=== PATIENT | female | born 2000 | race Hispanic/Latino ===

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

== ENCOUNTER → 2022-03-02 | Outpatient (CLI) | payer OTHER ==
[~2022-03-02] VITALS: Ht 12.7 cm; Wt 132.9 kg
== END | disposition home or self-care (01) ==
LOC: DTH 02-20 12:59
PROVIDERS: ATTEND Surgery
DX: Z71.3 Dietary counseling and surveillance (principal); K76.0 Fatty (change of) liver, not elsewhere classified; K21.9 Gastro-esophageal reflux disease without esophagitis; G47.33 Obstructive sleep apnea (adult) (pediatric); E66.01 Morbid (severe) obesity due to excess calories; Z68.43 Body mass index [BMI] 50.0-59.9, adult
CPT/HCPCS: 97802

== ENCOUNTER → 2022-03-17 | Outpatient (CLI) | payer OTHER | END | disposition home or self-care (01) | LOC: DTH 10:20 | PROVIDERS: ATTEND Surgery | DX: Z71.3 Dietary counseling and surveillance (principal); K76.0 Fatty (change of) liver, not elsewhere classified; K21.9 Gastro-esophageal reflux disease without esophagitis; G47.33 Obstructive sleep apnea (adult) (pediatric); E66.01 Morbid (severe) obesity due to excess calories; Z68.43 Body mass index [BMI] 50.0-59.9, adult | CPT/HCPCS: 97803 ==

== ENCOUNTER → 2022-04-17 | Outpatient (CLI) | payer OTHER | END | disposition home or self-care (01) | LOC: DTH 09:59 | PROVIDERS: ATTEND Surgery | DX: Z71.3 Dietary counseling and surveillance (principal); K21.9 Gastro-esophageal reflux disease without esophagitis; K76.0 Fatty (change of) liver, not elsewhere classified; G47.33 Obstructive sleep apnea (adult) (pediatric); E66.01 Morbid (severe) obesity due to excess calories; Z68.43 Body mass index [BMI] 50.0-59.9, adult | CPT/HCPCS: 97803 ==

== ENCOUNTER → 2022-05-11 | Outpatient (CLI) | payer OTHER | END | disposition home or self-care (01) | LOC: DTH 08:47 | PROVIDERS: ATTEND Surgery | DX: Z71.3 Dietary counseling and surveillance (principal); E66.01 Morbid (severe) obesity due to excess calories; K76.0 Fatty (change of) liver, not elsewhere classified; K21.9 Gastro-esophageal reflux disease without esophagitis; G47.33 Obstructive sleep apnea (adult) (pediatric); Z68.43 Body mass index [BMI] 50.0-59.9, adult | CPT/HCPCS: 97803 ==

== ENCOUNTER → 2022-06-25 | Outpatient (CLI) | payer OTHER | END | disposition home or self-care (01) | LOC: DTH 11:06 | PROVIDERS: ATTEND Surgery | DX: Z71.3 Dietary counseling and surveillance (principal); E66.01 Morbid (severe) obesity due to excess calories; K76.0 Fatty (change of) liver, not elsewhere classified; K21.9 Gastro-esophageal reflux disease without esophagitis; G47.33 Obstructive sleep apnea (adult) (pediatric); Z68.43 Body mass index [BMI] 50.0-59.9, adult | CPT/HCPCS: 97803 ==

== ENCOUNTER 2022-07-14 00:09 | Emergency (ER) | payer MEDICAID, OTHER ==
[~2022-07-14] VITALS: Ht 154.9 cm; Wt 136.5 kg
[2022-07-14 00:56] LABS: BASOPHILS % (AUTO) 0.2 % (0.0-5.0); EOSINOPHILS % (AUTO) 0.6 % (0.0-8.0); HEMATOCRIT 35.5 % (36-48); LYMPHOCYTES % (AUTO) 20.6 % (21.0-51.0); MEAN CORPUSCULAR HEMOGLOBIN 24.5 pg (27.0-33.0); MEAN CORPUSCULAR VOLUME 79.1 fL (80-100); MONOCYTES % (AUTO) 8.2 % (3.0-13.0); NEUTROPHILS % (AUTO) 70.1 % (40.0-77.0); PLATELET COUNT (AUTO) 267 K/uL (130-400); RED BLOOD CELL COUNT(AUTO) 4.49 MIL/uL (4.00-5.50); RED CELL DISTRIBUTION WIDTH 14.9 % (11.0-15.5); WHITE BLOOD COUNT (AUTO) 14.3 K/uL (4.8-10.8)
[2022-07-14 01:00] LABS: APPEARANCE,URINE SL CLOUDY (CLEAR); BILIRUBIN,URINE NEGATIVE (NEGATIVE); COLOR,URINE YELLOW (YELLOW); GLUCOSE, URINE (UA) NEGATIVE (NEGATIVE); KETONES,URINE NEGATIVE (NEGATIVE); LEUKOCYTE ESTERASE ,URINE NEGATIVE Leu/uL (NEGATIVE); NITRATE,URINE NEGATIVE (NEGATIVE); OCCULT BLOOD,URINE SMALL (NEGATIVE); PROTEIN,URINE 30 mg/dL (NEGATIVE); UROBILINOGEN,URINE 0.2 mg/dL (0.2-1.0)
[2022-07-14] MEDS ORDERED: KETOROLAC 30MG VIAL (30MG/ML) IVP ONE (01:00)
[2022-07-14] MEDS ORDERED: ONDANSETRON 4MG INJ IVP ONE (01:00)
[2022-07-14] MEDS ORDERED: DiphenhydrAMINE HCL 50 MG/ML VIAL IV ONE (01:00)
[2022-07-14] MEDS ORDERED: METOCLOPRAMIDE 10 MG/2 ML VIAL IVP ONE (01:00)
[2022-07-14] MEDS ORDERED: 0.9%NACL 1000ML 1,000 ML IV ONE (01:00)
[2022-07-14 01:03] LABS: BACTERIA,URINE Rare /HPF (None Seen); MUCUS,URINE Rare LPF (None Seen); RBC,URINE 0-1 /HPF (0-1); SQUAMOUS EPITHELIAL CELL,UR Few /HPF (0-2); WBC,URINE 0-1 /HPF (0-1)
[2022-07-14 01:05] LABS: CREATININE 0.7 mg/dL (0.5-1.5); POTASSIUM 3.5 mmol/L (3.5-5.1)
[2022-07-14 01:09] LABS: ALBUMIN 3.6 g/dL (3.5-5.0); TOTAL PROTEIN, SERUM 7.9 g/dL (6.0-8.3)
[2022-07-14] MEDS ORDERED: IBUP-2077 PO (02:25)
[2022-07-14] MEDS ORDERED: BUTA-271 PO (02:25)
[2022-07-14] MEDS ORDERED: ONDA4TAB10 PO (02:25)
[2022-07-14 02:45] VITALS: BP 118/72
[2022-09-10] MEDS ORDERED: IBUP-2076 PO (09:25)
== END 2022-07-14 02:46 | disposition home or self-care (01) ==
LOC: EDH 00:09
DX: G43.909 Migraine, unspecified, not intractable, without status migrainosus (principal); Z20.822 Contact with and (suspected) exposure to COVID-19; R11.10 Vomiting, unspecified; J45.909 Unspecified asthma, uncomplicated; F41.9 Anxiety disorder, unspecified; Z90.89 Acquired absence of other organs; Z90.49 Acquired absence of other specified parts of digestive tract
CPT/HCPCS: 99284; 96374; 96375 ×2; 87635; 96361; 80053; 85025; 87880; 87804 ×2; 81001; 81025; 36415; C9803; J1200; J7030; J2405; J1885; J2765

== ENCOUNTER → 2022-07-14 | Outpatient (CLI) | payer OTHER ==
[~2022-07-14] MED LIST: BUTA-271 PO; IBUP-2077 PO; ONDA4TAB10 PO
== END | disposition home or self-care (01) ==
LOC: DTH 10:14
PROVIDERS: ATTEND Surgery
DX: Z71.3 Dietary counseling and surveillance (principal); E66.01 Morbid (severe) obesity due to excess calories; G47.33 Obstructive sleep apnea (adult) (pediatric); K21.9 Gastro-esophageal reflux disease without esophagitis; K76.0 Fatty (change of) liver, not elsewhere classified; Z68.43 Body mass index [BMI] 50.0-59.9, adult
CPT/HCPCS: 97803

== ENCOUNTER → 2022-09-02 | Outpatient (CLI) | payer OTHER | END | disposition home or self-care (01) | LOC: DTH 10:32 | PROVIDERS: ATTEND Surgery | DX: E66.01 Morbid (severe) obesity due to excess calories (principal); K76.0 Fatty (change of) liver, not elsewhere classified; K21.9 Gastro-esophageal reflux disease without esophagitis; G47.33 Obstructive sleep apnea (adult) (pediatric) | CPT/HCPCS: 97803 ==

== ENCOUNTER 2023-02-17 06:21 | Emergency (ER) | payer MEDICAID ==
[~2023-02-17] VITALS: Ht 165.1 cm; Wt 109.8 kg
[2023-02-17] MEDS ORDERED: KETOROLAC 60 MG VIAL (30MG/ML) IM ONE (08:00)
[2023-02-17] MEDS ORDERED: IBUP-2070 PO (08:55)
[2023-02-17 09:01] VITALS: BP 108/73; PULSE 66; RESP 16; O2SAT 100
== END 2023-02-17 09:09 | disposition home or self-care (01) ==
LOC: EDH 06:21
DX: S63.91XA Sprain of unspecified part of right wrist and hand, initial encounter (principal); S40.021A Contusion of right upper arm, initial encounter; G43.909 Migraine, unspecified, not intractable, without status migrainosus; Z90.49 Acquired absence of other specified parts of digestive tract; W18.39XA Other fall on same level, initial encounter; Y93.89 Activity, other specified; Y92.89 Other specified places as the place of occurrence of the external cause; Y99.8 Other external cause status
CPT/HCPCS: 99284; 73100; 73080; 73130; 73030; 96372; J1885

== ENCOUNTER 2023-06-20 09:41 | Emergency (ER) | payer OTHER, BC ==
[~2023-06-20] VITALS: Ht 165.1 cm; Wt 102.5 kg
[~2023-06-20 09:41] MED LIST changes: -BUTA-271 PO; +IBUP-2070 PO; -IBUP-2077 PO; -ONDA4TAB10 PO
[2023-06-20 09:42] VITALS: RESP 16
[2023-06-20 10:14] LABS: HEMATOCRIT 38.6 % (36-48); MEAN CORPUSCULAR HEMOGLOBIN 26.2 pg (27.0-33.0); MEAN CORPUSCULAR HGB CONC 30.6 g/dL (32.0-36.0); MEAN CORPUSCULAR VOLUME 85.8 fL (79-99); PLATELET COUNT (AUTO) 256 K/uL (130-400); RED CELL DISTRIBUTION WIDTH 13.5 % (11.0-15.5); WHITE BLOOD COUNT (AUTO) 9.8 K/uL (4.8-10.8)
[2023-06-20 10:20] LABS: CREATININE 0.8 mg/dL (0.5-1.5); POTASSIUM 3.5 mmol/L (3.5-5.1)
[2023-06-20 10:41] LABS: HCG,QUALITATIVE URINE NEGATIVE (NEGATIVE)
[2023-06-20 10:49] LABS: APPEARANCE,URINE CLOUDY (CLEAR); BILIRUBIN,URINE NEGATIVE (NEGATIVE); COLOR,URINE YELLOW (YELLOW); GLUCOSE, URINE (UA) NEGATIVE (NEGATIVE); KETONES,URINE NEGATIVE (NEGATIVE); LEUKOCYTE ESTERASE ,URINE 500 Leu/uL (NEGATIVE); NITRATE,URINE NEGATIVE (NEGATIVE); OCCULT BLOOD,URINE NEGATIVE (NEGATIVE); PROTEIN,URINE 20 mg/dL (NEGATIVE); UROBILINOGEN,URINE 0.2 mg/dL (0.2-1.0)
[2023-06-20 10:55] LABS: ADD UA MICROSCOPIC YES
[2023-06-20 10:59] LABS: BACTERIA,URINE FEW /HPF (None Seen); MUCUS,URINE RARE LPF (None Seen); SQUAMOUS EPITHELIAL CELL,UR MANY /HPF (0-2); WBC,URINE 26-50 /HPF (0-1)
[2023-06-20] MEDS ORDERED: LACTATED RINGERS 1000ML 1,000 ML IV ONE (11:00)
[2023-06-20] MEDS ORDERED: FAMOTIDINE 20MG VIAL IV ONE (11:00)
[2023-06-20] MEDS ORDERED: ONDANSETRON 4MG INJ IVP ONE (11:00)
[2023-06-20 11:22] LABS: ALBUMIN 3.5 g/dL (3.5-5.0); BILIRUBIN,DIRECT 0.1 mg/dL (0.0-0.3); BILIRUBIN,TOTAL 0.7 mg/dL (0.2-1.0); TOTAL PROTEIN, SERUM 7.8 g/dL (6.0-8.3)
[2023-06-20 11:32] LABS: RAPID GROUP A STREP negative (NEGATIVE)
[2023-06-20 11:39] LABS: COVID19 (SARS ANTIGEN RAPID) PRESUMPTIVE NEGATIVE (NEGATIVE); INFLUENZA TYPE A Negative For Type A (NEGATIVE); INFLUENZA TYPE B Negative For Type B (NEGATIVE)
[2023-06-20 12:32] VITALS: BP 114/69; PULSE 51; O2SAT 98
[2023-06-20] MEDS ORDERED: CEPH500B PO (13:14)
== END 2023-06-20 13:04 | disposition left against medical advice (07) ==
LOC: EDH 09:41
DX: N39.0 Urinary tract infection, site not specified (principal); Z90.49 Acquired absence of other specified parts of digestive tract; Z20.822 Contact with and (suspected) exposure to COVID-19
CPT/HCPCS: 99284; 96374; 96361; 96375; 87426; 80076; 84484; 80048; 83690; 85027; 87088; 87880; 87804 ×2; 81001; 81025; 36415; 93005; J3490; J2405

== ENCOUNTER 2023-09-01 20:35 | Emergency (ER) | payer OTHER ==
[~2023-09-01] VITALS: Ht 165.1 cm; Wt 98.4 kg
[~2023-09-01 20:35] MED LIST changes: +CEPH500B PO
[2023-09-01 21:24] VITALS: BP 139/65; PULSE 82; RESP 18
[2023-09-01] MEDS: CEFTRIAXONE 1G VIAL IM ONE (22:00)
[2023-09-01] MEDS: ACETAMINOPHEN 500 MG TABLET PO ONE (22:00)
[2023-09-01 22:11] LABS: COVID19 (SARS ANTIGEN RAPID) PRESUMPTIVE NEGATIVE (NEGATIVE); INFLUENZA TYPE A Negative For Type A (NEGATIVE); INFLUENZA TYPE B Negative For Type B (NEGATIVE)
[2023-09-01] MEDS ORDERED: AMOX1TAB16 PO (22:21)
[2023-09-01] MEDS ORDERED: CYCL-309 PO (22:21)
[2023-09-01] MEDS ORDERED: IBUP-2077 PO (22:21)
[2023-09-02] MEDS: CYCLOBENZAPRINE HCL 10 MG TABLET PO ONE (00:13)
== END 2023-09-02 00:20 | disposition home or self-care (01) ==
LOC: EDH 20:35
DX: J02.9 Acute pharyngitis, unspecified (principal); M54.50 Low back pain, unspecified; R51.9 Headache, unspecified; F41.9 Anxiety disorder, unspecified; Z79.899 Other long term (current) drug therapy; Z20.822 Contact with and (suspected) exposure to COVID-19; Z90.49 Acquired absence of other specified parts of digestive tract; Z98.890 Other specified postprocedural states
CPT/HCPCS: 99283; 87426; 87804 ×2; 96372; J0696

== ENCOUNTER 2023-10-02 00:18 | Emergency (ER) | payer OTHER ==
[~2023-10-02] VITALS: Ht 175.3 cm; Wt 98.9 kg
[~2023-10-02 00:18] MED LIST changes: +AMOX1TAB16 PO; +CYCL-309 PO; +IBUP-2077 PO
[2023-10-02 00:19] VITALS: BP 109/65; PULSE 67; RESP 20
[2023-10-02 00:56] LABS: RAPID GROUP A STREP negative (NEGATIVE)
[2023-10-02 01:07] LABS: SARS-CoV-2, RNA, NAAT NEGATIVE SARS CoV-2 (NEGATIVE)
[2023-10-02 01:09] LABS: INFLUENZA TYPE A Negative For Type A (NEGATIVE); INFLUENZA TYPE B Negative For Type B (NEGATIVE)
[2023-10-02 01:35] LABS: APPEARANCE,URINE CLOUDY (CLEAR); BILIRUBIN,URINE NEGATIVE (NEGATIVE); COLOR,URINE LIGHT-YELLOW (YELLOW); GLUCOSE, URINE (UA) NEGATIVE (NEGATIVE); KETONES,URINE NEGATIVE (NEGATIVE); LEUKOCYTE ESTERASE ,URINE 75 Leu/uL (NEGATIVE); NITRATE,URINE NEGATIVE (NEGATIVE); OCCULT BLOOD,URINE NEGATIVE (NEGATIVE); PH,URINE 5.5 (5.0-8.0); PROTEIN,URINE NEGATIVE (NEGATIVE); UROBILINOGEN,URINE 0.2 mg/dL (0.2-1.0)
[2023-10-02 01:39] LABS: HCG,QUALITATIVE URINE NEGATIVE (NEGATIVE)
[2023-10-02 01:40] LABS: ADD UA MICROSCOPIC YES
[2023-10-02 01:45] LABS: BACTERIA,URINE RARE /HPF (None Seen); CALCIUM OXALATE CRYSTALS,UR MANY /LPF (None Seen); MUCUS,URINE RARE LPF (None Seen); SQUAMOUS EPITHELIAL CELL,UR MOD /HPF (0-2)
[2023-10-02] MEDS: ACETAMINOPHEN 325 MG TAB PO PRN (02:29)
[2023-10-02] MEDS: ACETAMINOPHEN 325 MG TAB ONE (02:43)
[2023-10-02] MEDS ORDERED: CEPH500T PO (04:26)
[2023-10-02] MEDS ORDERED: METO-296 PO (04:26)
[2023-10-02] MEDS ORDERED: PHEN-847 PO (04:26)
[2023-10-02] MEDS: PHENAZOPYRIDINE HCL 200 MG TABLET PO ONE (04:34)
[2023-10-02] MEDS: CEPHALEXIN 500 MG CAPSULE PO ONE (04:34)
[2023-10-02] MEDS: METOCLOPRAMIDE 10 MG TABLET PO ONE (04:34)
== END 2023-10-02 04:58 | disposition home or self-care (01) ==
LOC: EDH 00:18
DX: N39.0 Urinary tract infection, site not specified (principal); G44.209 Tension-type headache, unspecified, not intractable; F41.9 Anxiety disorder, unspecified; G43.909 Migraine, unspecified, not intractable, without status migrainosus; K21.9 Gastro-esophageal reflux disease without esophagitis; Z90.49 Acquired absence of other specified parts of digestive tract; Z20.822 Contact with and (suspected) exposure to COVID-19
CPT/HCPCS: 81001; 81025; 87088; 87635; 87804; 87880

== ENCOUNTER 2024-07-21 04:07 | Emergency (ER) | payer BC, OTHER ==
[~2024-07-21] VITALS: Ht 165.1 cm; Wt 104.8 kg
[~2024-07-21 04:07] MED LIST changes: +CEPH500T PO; +METO-296 PO; +PHEN-847 PO
--- NOTE | 2024-07-21 04:49 | NUR ---
PATIENT STATES NOT ABLE TO PROVIDE A URINE AT THIS TIME.
--- NOTE | 2024-07-21 04:53 | ERN ---
ED Note History of Present Illness Stated Complaint: Lower back pain for 5 days Chief Complaint: Lower back pain Time Seen by MD: 04:47 Dictation: This is a 24-year-old female who presented to the emergency room with complaints of lower back pain for 5 days. She denied any trauma fall. She also denied picking up any heavy weights or spraining the back. No bladder or bowel incontinence no weakness of the lower extremities. Pain is mostly across the lumbar area she denied any radiation down her gluteal area or legs. No nausea vomitings diarrhea hematemesis or melena no fever chills or rigors. Temperature 97.9 pulse 61 respirations 20 blood pressure 113/61 with a pulse oximetry of 98% on room air Last menstrual period was 12 20 Her past medical history is significant for a gastric sleeve surgery for weight loss Allergies: Coded Allergies: No Known Allergies (Unverified Allergy, Unknown, 07/14/22) Home Meds Active Scripts Metoclopramide HCl (Reglan) 10 Mg Tablet, 10 MG PO TIDP PRN for Nausea /Emesis/Headache , #20 TAB 2 Refills Prov:EVANGELIST MADRID Sr., MD 10/02/23 Phenazopyridine HCl (Pyridium) 200 Mg Tab, 200 MG PO TID for 2 Days, #6 TAB 0 Refills Prov:EVANGELIST MADRID Sr., MD 10/02/23 Cephalexin (Cephalexin) 500 Mg Tablet, 500 MG PO QID for 10 Days, #40 TAB 0 Refills Prov:EVANGELIST MADRID Sr., MD 10/02/23 Ibuprofen (Ibuprofen 800 mg Tab) 800 Mg Tab, 800 MG PO Q8H PRN for fever or pain, #30 TAB 0 Refills Prov:DAY VIEIRA NP 09/01/23 Cyclobenzaprine HCl (Cyclobenzaprine HCl) 10 Mg Tablet, 10 MG PO TIDP for back pain, #30 TAB Prov:DAY VIEIRA NP 09/01/23 Amoxicillin/Potassium Clav (Amox Tr-K Clv 875-125 mg Tab) 875 Mg-125 Mg Tablet, 1 EACH PO BID for 10 Days, #20 TAB 0 Refills Prov:DAY VIEIRA NP 09/01/23 Cephalexin Monohydrate (Keflex) 500 Mg Cap, 500 MG PO QID for 7 Days, #28 CAP 0 Refills Prov:EVANGELIST MADRID Sr., MD 06/20/23 Ibuprofen (Ibuprofen) 600 Mg Tablet, 600 MG PO Q6H PRN for PAIN, #15 TAB 2 Refills Prov:EVANGELIST MADRID Sr., MD 02/17/23 Past Medical History Past Medical History: No Pertinent History Additional Past Medical Hx: GASTRITIS Surgical History: None Surgical History Other: GASTRIC SLEEVE Family History: Negative Social History: Other LMP: Jun 23, 2024 RN Note Reviewed/Agreed w/PFSH: Yes Review of System Dictation Constitutional: Negative for fever,chills, and weight loss Eyes: Negative for injury, pain,redness, and discharge ENT: Negative for injury,pain or swelling Cardiovascular: Negative for chest pain, palpitations, and edema Respiratory: Negative for shortness of breath, cough, and wheezing, Abdomen/GI: Negative for abdominal pain, nausea, vomiting, diarrhea, and constipation Back: Positive for pain : Negative for injury, bleeding and discharge MS/Extremity: Negative for injury and deformity Skin: Negative for rash, and discoloration Neuro: Negative for headache, weakness, numbness, tingling, and seizure Psych: Negative for suicide ideation, homicidal ideation, and hallucinations Initial Vital Sign VS Vital Signs Date Time Temp Pulse Resp B/P (MAP) Pulse Ox O2 Delivery O2 Flow Rate FiO2 07/21/24 04:09 97.9 61 20 113/61 95 Room Air 07/21/24 04:54 0 21 Physical Exam Dictation General: awake, alert, NAD morbidly obese Head/Face: Normocephalic, atraumatic Eyes: PERRL, EOMI, vision at baseline ENT: oral cavity clear, TMs clear, no signs of infection Neck: Trachea midline, supple, no nuchal rigidity Cardiovascular: RRR, normal S1/S2, No MRGs, no JVD Respiratory: CTAB, no respiratory distress, No rales or wheezes Abdomen: Soft, non-tender, non-distended, normal bowel sounds, no guarding or rebound. Skin: Warm, dry, normal turgor, no rash MS/Extremity: Pulses equal, no cyanosis, neurovascular intact, FROM Neuro: COAx4, GCS 15, strength 5/5, CN 2-12 intact, normal cerebellar exam, normal gait, Psych: Normal behavior, mood, and affect normal Extremities-trace edema without any palpable cords, Homans sign is negative Results (Laboratory/Radiology) Laboratory/Radiology Laboratory Tests Test 07/21/24 04:49 07/21/24 05:20 Influenza Type A Antigen Negative For Type A Influenza Type B Antigen Negative For Type B SARS-CoV-2 Antigen (Rapid) PRESUMPTIVE NEGATIVE Group A Streptococcus Rapid negative (NEGATIVE) Urine Color LIGHT-YELLOW (YELLOW) Urine Appearance CLEAR (CLEAR) Urine pH 6.5 (5.0-8.0) Urine Specific [place] 1.015 (1.001-1.031) Urine Protein NEGATIVE mg/dL (NEGATIVE) Urine Glucose (UA) NEGATIVE mg/dL (NEGATIVE) Urine Ketones NEGATIVE mg/dL (NEGATIVE) Urine Occult Blood NEGATIVE (NEGATIVE) Urine Nitrate NEGATIVE (NEGATIVE) Urine Bilirubin NEGATIVE mg/dL (NEGATIVE) Urine Urobilinogen 0.2 mg/dL (0.2-1.0) Urine Leukocyte Esterase NEGATIVE Mushtaq/uL Urine HCG, Qualitative NEGATIVE (NEGATIVE) Labs Reviewed?: Yes ED Course ED Course Orders Procedure Category Date Status Time Urinalysis Profile LAB 07/21/24 Complete 04:48 ,Urine Test LAB 07/21/24 Complete 04:48 Rapid (Group A Strep) LAB 07/21/24 Complete 04:48 Influenza Type A & B, LAB 07/21/24 Complete Rapid 04:48 Covid19 (Sars Antigen LAB 07/21/24 Complete Rapid) 04:48 Ketorolac PHA 07/21/24 Complete Tromethamine 30mg/Ml 05:00 Ct Lumbar Spine W/O CT 07/21/24 Resulted Contrast 05:02 Cyclobenzaprine Hcl PHA 07/21/24 Complete (Cyclobenzaprine Hcl 05:30 Ketorolac PHA 07/21/24 Complete Tromethamine 30mg/Ml 06:30 Current Medications Medications (Trade) Dose Ordered Sig/Umm Route PRN Reason Start Time Stop Time Status Last Admin Dose Admin Cyclobenzaprine HCl (Cyclobenzaprine HCl) 5 mg ONCE ONCE PO 07/21/24 05:30 07/21/24 05:31 DC 07/21/24 06:27 Ketorolac Tromethamine (toRADol) 30 mg ONCE ONCE IM 07/21/24 06:30 07/21/24 06:31 DC 07/21/24 06:33 Ketorolac Tromethamine (toRADol) 30 mg ONCE ONCE IVP 07/21/24 05:00 07/21/24 06:25 DC Vital Signs Date Time Temp Pulse Resp B/P (MAP) Pulse Ox O2 Delivery O2 Flow Rate FiO2 07/21/24 07:29 97.9 52 18 107/53 100 Room Air* 0 21 07/21/24 06:33 52 18 119/64 99 Room Air* 0 21 07/21/24 05:45 60 18 106/55 98 Room Air* 0 21 07/21/24 04:54 97.9 60 18 99/52 100 Room Air* 0 21 07/21/24 04:09 97.9 61 20 113/61 95 Room Air We will perform diagnostic labs, advanced imaging and administer medications according to the patient's complaint. Once the results are available, will review and personally interpreted the labs to rule out any acute life- threatening emergency the trach require immediate intervention and treatment. I will then re-evaluate the patient after treatment and diagnostic exams have return to determine whether the patient requires any further testing, can safely be discharged home or need further admission to hospital for additional treatment and evaluation. 6:10 a.m. Urinalysis is negative viral serology including flu COVID strep were all negative. 6:[address] scan of the lumbar spine has just been completed radiology report is pending at this time Medical Decision Making MDM MDM: Differential diagnosis: Lumbago, radiculopathy, paraspinal muscle spasm, pyelonephritis Rationale: Tests considered and ordered secondary to shared decision making include: Previous outside records reviewed: Old ER visits. Risk of complication and/or morbidity or mortality of patient management: None Medications-Per medication reconciliation Need for hospitalization: Patient does not meet criteria for hospitalization. Need for emergency major/minor surgery: No There are no social concerns with this patient. Prescription drug management Prescriptions will include symptomatic care Patient's prior external medical records from other ER visits were reviewed by me as indicated. Prior testing and results from previous visits were reviewed. Prior tests were taken into account with medical decision making and resource utilization, independent historian/historians were used to obtain complete medical history. I independently interpreted the test that were performed, results were reviewed by me and considered findings on radiology if ordered. Medical management and examination interpretation discussions were had by me with other qualified healthcare professionals as indicated for the patient's care. Patient signed out to me pending CT completion. As below and unremarkable. DC on Flexeril and steroids. PATIENT: SHEREE,JOSE G J MR#: [id number] : 2000 SEX: F AGE: 24 LOCATION: [facility] ORDER 2 STATUS: REG ER REPORT#: [id number] SERVICE 1 REASON: acute lumbar pain ORDERING PHYSICIAN: DARBY DREW MD PROCEDURE: L SPIN WO - CT LUMBAR SPINE W/O CONTRAST CT LUMBAR SPINE W/O CONTRAST REASON: acute lumbar pain COMPARISON: None. TECHNIQUE: Routine lumbar imaging protocol was performed with axial images from T11-12 through the sacrum. Sagittal and coronal reconstruction images were then performed. FINDINGS: Findings: There are normal appearing vertebral bodies. Disc interspace heights are preserved. Vertebral body alignment is normal. There are no focal osseous lesions. Axial images show widely patent spinal canal and thecal sac. There is no disc herniation or focal spinal stenosis. Soft tissues appear unremarkable. IMPRESSION: 1. Normal noncontrast CT lumbar spine. DICTATED BY: BETTY ALEGRE MD DATE: 07/21/24826 ELECTRONICALLY SIGNED BY: BETTY ALEGRE MD DATE: 07/21/24830 Problem List Problem List: (1) Acute lumbar back pain (2) S/P laparoscopic sleeve gastrectomy DX & DISP Disposition: Discharge Departure Impression: Primary Impression: Low back pain Condition: Stable Scripts Cyclobenzaprine HCl (Cyclobenzaprine HCl) 7.5 Mg Tablet 1 TAB PO TID for spasm for 7 Days, #21 TAB 0 Refills Prov: ABDIRAHMAN JULIAN MD 07/21/24 Methylprednisolone (Medrol) 4 Mg Tablet 1 TAB PO AD for 6 Days, #21 TAB 0 Refills Prov: ABDIRAHMAN JULIAN MD 07/21/24 Additional Instructions: Patient and the caregiver have been informed of all the diagnostic tests and the imaging conducted during the today's visit to the emergency room and has janette balized understanding of the results I have personally reviewed and interpreted all diagnostic exams performed here in the ER today as well as the vital signs documented by the nursing staff. The patient is now being discharged to home and should follow up with the primary care physician or the specialist as directed by the ER staff. Follow-up with primary care provider in 1 to 2 days. Take medications as directed here in the emergency room. Okay to continue home medications unless otherwise discussed during your visit in the emergency room today. Return to your nearest emergency room if symptoms worsen or if there is no improvement. Call 911 if you need immediate assistance. Take Tylenol or Motrin [id number] as needed and if no contraindications are present. Increase oral hydration. A wound culture or urine culture was ordered here in the emergency room department please follow-up with primary care provider and advise them to get repeat ports from our facility. If you had any Francesco wrap/splints that were applied here, please do not remove them until you see your primary care or specialty. Referrals: SELF,REFERRAL (PCP) DARBY DREW MD Jul 21, 2024 04:53 ABDIRAHMAN JULIAN MD Jul 21, 2024 09:00
--- NOTE | 2024-07-21 04:56 | NUR ---
PATIENT STATES LOWER MID BACK PAIN X2 DAYS, NON TRAUMATIC, NO INJURY, SORE THROAT.
[2024-07-21] MEDS ORDERED: ketOROlac 30MG VIAL (30MG/ML) IVP ONE (05:00)
--- NOTE | 2024-07-21 05:09 | NUR ---
PATIENT TO BATHROOM TO TRY TO OBTAIN A URINE SAMPLE.
[2024-07-21 05:26] LABS: RAPID GROUP A STREP negative (NEGATIVE)
[2024-07-21 05:36] LABS: COVID19 (SARS ANTIGEN RAPID) PRESUMPTIVE NEGATIVE (NEGATIVE); INFLUENZA TYPE A Negative For Type A (NEGATIVE); INFLUENZA TYPE B Negative For Type B (NEGATIVE)
[2024-07-21 05:47] LABS: APPEARANCE,URINE CLEAR (CLEAR); BILIRUBIN,URINE NEGATIVE (NEGATIVE); COLOR,URINE LIGHT-YELLOW (YELLOW); GLUCOSE, URINE (UA) NEGATIVE (NEGATIVE); KETONES,URINE NEGATIVE (NEGATIVE); LEUKOCYTE ESTERASE ,URINE NEGATIVE Leu/uL (NEGATIVE); NITRATE,URINE NEGATIVE (NEGATIVE); OCCULT BLOOD,URINE NEGATIVE (NEGATIVE); PH,URINE 6.5 (5.0-8.0); PROTEIN,URINE NEGATIVE (NEGATIVE); UROBILINOGEN,URINE 0.2 mg/dL (0.2-1.0)
[2024-07-21 05:48] LABS: ADD UA MICROSCOPIC NO
[2024-07-21 05:49] LABS: HCG,QUALITATIVE URINE NEGATIVE (NEGATIVE)
[2024-07-21] MEDS: CYCLOBENZAPRINE HCL 10 MG TABLET PO ONE (06:27)
[2024-07-21] MEDS: ketOROlac 30MG VIAL (30MG/ML) IM ONE (06:33)
--- NOTE | 2024-07-21 08:31 | HMCIMG ---
CT LUMBAR SPINE W/O CONTRAST REASON: acute lumbar pain COMPARISON: None. TECHNIQUE: Routine lumbar imaging protocol was performed with axial images from T11-12 through the sacrum. Sagittal and coronal reconstruction images were then performed. FINDINGS: Findings: There are normal appearing vertebral bodies. Disc interspace heights are preserved. Vertebral body alignment is normal. There are no focal osseous lesions. Axial images show widely patent spinal canal and thecal sac. There is no disc herniation or focal spinal stenosis. Soft tissues appear unremarkable. IMPRESSION: 1. Normal noncontrast CT lumbar spine.
[2024-07-21] MEDS ORDERED: CYCL7.5T27 PO (08:59)
[2024-07-21] MEDS ORDERED: METH4TAB PO (08:59)
[2024-07-21 09:11] VITALS: BP 111/54; PULSE 58; RESP 17; TEMP 97.9; O2SAT 99
== END 2024-07-21 09:11 | disposition home or self-care (01) ==
LOC: EDH 04:07
DX: M54.50 Low back pain, unspecified (principal); Z79.899 Other long term (current) drug therapy; Z20.822 Contact with and (suspected) exposure to COVID-19
CPT/HCPCS: 99284; 72131; 87426; 87880; 87804 ×2; 81003; 81025; 96372; J1885